=== PATIENT | female | born 1945 | race Caucasian/White ===

== ENCOUNTER 2019-05-09 06:34 | Day surgery (SDC) | payer MEDICARE, BC ==
[2019-05-09] MEDS ORDERED: LIDOCAINE 2% MDV (20MG/ML) 20ML VIAL IV ONE (06:35)
[2019-05-09] MEDS ORDERED: PROPOFOL 10 MG/ML VIAL IV ONE (06:35)
--- NOTE | 2019-05-13 08:10 | Operative Note ---
SURGEON: Keesha Islas MD OPERATION: ESOPHAGOGASTRODUODENOSCOPY. 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 She also has had occasional dysphagia. POSTOPERATIVE DIAGNOSES: 1. Normal esophagus with small hiatal hernia. 2. Mild gastritis. 3. Normal duodenum. ANESTHESIA: Sedation is per Anesthesia. Pulse oximetry was monitored throughout the procedure to maintain O2 saturation of 90% or greater. Supplemental oxygen was administered via nasal cannula. Cardiac and vital signs were monitored throughout the duration of the procedure, and they were stable. The procedure of esophagogastroduodenoscopy and risks and benefits of the procedure, including the risk of bleeding and perforation, among others, were explained to the patient who voiced understanding and agreed to have the procedure done. Physical examination was performed, and the patient was found stable for sedation. PROCEDURE: The patient was placed in the left lateral position. Sedation was initiated. A plastic bite block was inserted into the oral cavity. The Olympus [id number] gastroscope was introduced into the oral cavity and advanced to the proximal esophagus without difficulty. The esophageal mucosa was carefully examined upon introduction of the gastroscope. The proximal and mid and distal esophageal mucosa appeared normal. A small hiatal hernia noted. The gastroscope was then advanced into the stomach, and surveillance of the stomach revealed mild erythema along the gastric body and antrum but no ulcers were noted. The gastroscope was then advanced to the descending duodenum without difficulty. The duodenal bulb and descending duodenum appeared normal. The gastroscope was then withdrawn into the stomach and retroflexion was performed. There were no other lesions noted. The gastroscope was then straightened and withdrawn while carefully examining the gastric and esophageal mucosa. No other lesions noted. Multiple gastric and mid esophageal biopsies were obtained. Lehman dilator size 60-Tajik was then passed into the stomach with mild resistance. Lehman dilator was then withdrawn and the procedure was terminated. The patient tolerated procedure well without immediate complaints. She remained with stable vital signs and was transferred to the recovery room. RECOMMENDATIONS: 1. The patient is to be on high-fiber diet. 2. The patient is to switch out to Prevacid 30 mg p.o. daily. 3. The patient is to have a repeat esophagogastroduodenoscopy in about 3 years. Thank you for allowing me to participate in the care of your patient. ZHANNA
== END 2019-05-09 08:23 | disposition home or self-care (01) ==
LOC: HOP 06:34
PROVIDERS: ATTEND Internal Medicine Gastroenterology
DX: Z87.19 Personal history of other diseases of the digestive system (principal); R13.10 Dysphagia, unspecified; K44.9 Diaphragmatic hernia without obstruction or gangrene; K29.50 Unspecified chronic gastritis without bleeding; I10 Essential (primary) hypertension; E78.00 Pure hypercholesterolemia, unspecified